=== PATIENT | male | born 1945 | race Caucasian/White ===

== ENCOUNTER 2020-12-12 15:45 | Emergency (ER) | payer MEDICARE ==
[~2020-12-12] VITALS: Ht 182.9 cm; Wt 100.0 kg
[2020-12-12 17:17] LABS: BASO # 0.1 x10^3/uL (0.0-0.2); BASO % 2 % (0-3); EOS # 0.2 x10^3/uL (0.0-0.7); EOS % 4 % (0-3); HEMATOCRIT 41.5 % (39.0-53.0); HEMOGLOBIN 14.2 g/dL (13.0-17.5); LYMPH # 1.6 x10^3/uL (1.0-4.8); LYMPH % 32 % (24-48); MEAN CORPUSCULAR HEMOGLOBIN 32 pg (25-35); MEAN CORPUSCULAR HGB CONC 34 g/dL (31-37); MEAN CORPUSCULAR VOLUME 94 fL (79-100); MONO # 0.4 x10^3/uL (0.0-1.1); MONO % 9 % (0-9); NEUT # 2.7 x10^3/uL (1.8-7.7); NEUT % 54 % (31-73); PLATELET COUNT 199 x10^3/uL (140-400); RED BLOOD COUNT 4.43 x10^6/uL (4.30-5.70); RED CELL DISTRIBUTION WIDTH 14.4 % (11.5-14.5); WHITE BLOOD COUNT 5.1 x10^3/uL (4.0-11.0)
--- NOTE | 2020-12-12 17:21 | RAD ---
XR CHEST 1V History: Reason: SOA / Spl. Instructions: / History: Comparison: None. Findings: No consolidation or pleural effusion. Normal heart size. No pneumothorax. Impression: 1. No acute cardiopulmonary process. Electronically signed by: Prem Renteria DO (12/12/2020 5:18 PM) [facility] [place] [facility] [place]
[2020-12-12 17:29] LABS: CALCIUM 9.1 mg/dL (8.5-10.1); CREATININE 0.9 mg/dL (0.7-1.3); GFR 81.8; POTASSIUM 3.6 mmol/L (3.5-5.1)
[2020-12-12 17:34] LABS: ALBUMIN 3.8 g/dL (3.4-5.0); ALBUMIN/GLOBULIN RATIO 1.2 (1.0-1.7); MAGNESIUM 2.1 mg/dL (1.8-2.4); TOTAL BILIRUBIN 1.2 mg/dL (0.2-1.0); TOTAL PROTEIN 7.1 g/dL (6.4-8.2)
[2020-12-12 18:52] LABS: BILIRUBIN,URINE NEGATIVE (NEG); CLARITY,URINE CLEAR; COLOR,URINE YELLOW; NITRITE,URINE NEGATIVE (NEG); PROTEIN,URINE NEGATIVE (NEG-TRACE)
--- NOTE | 2020-12-12 19:02 | PHYS DOC ---
Past Medical History Past Medical History: Hypertension (AMIRA MIDDLETON COMPUTER FORWARDING SYSTEM MARKUP CLERK) Past Surgical History: Hip Replacement, Other Additional Past Surgical Histo: RIGHT HIP, EYES (AMIRA MIDDLETON COMPUTER FORWARDING SYSTEM MARKUP CLERK) General Adult EDM: Chief Complaint: SHORTNESS OF BREATH HPI: HPI: Patient is a 75 year old male with history of hypertension who presents to the ED today complaining of shortness of breath and diarrhea intermittently for 1 week. Patient states his girlfriend got diagnosed with COVID-19 2 days ago and is hospitalized. Patient also states his in February last year and he is still stressed out about it. Patient denies any fever, denies any unusual coughing or congestion. Denies any chest pain. Denies any suicidal or homicidal ideations. (AMIRA MIDDLETON COMPUTER FORWARDING SYSTEM MARKUP CLERK) Review of Systems: Review of Systems: Constitutional: Denies fever or chills. [] Eyes: Denies change in visual acuity. [] HENT: Denies nasal congestion or sore throat. [] Respiratory: Reports shortness of breath, denies unusual coughing Cardiovascular: Denies chest pain or edema. [] GI: Reports diarrhea. Denies abdominal pain, nausea, vomiting, bloody stools : Denies dysuria. [] Musculoskeletal: Denies back pain or joint pain. [] Integument: Denies rash. [] Neurologic: Denies headache, focal weakness or sensory changes. [] Psychiatric: Denies depression or anxiety. [] (AMIRA MIDDLETON COMPUTER FORWARDING SYSTEM MARKUP CLERK) Heart Score: C/O Chest Pain: N/A Risk Factors: Risk Factors: DM, Current or recent (<one month) smoker, HTN, HLP, family history of CAD, obesity. Risk Scores: Score 0 - 3: 2.5% MACE over next 6 weeks - Discharge Home Score 4 - 6: 20.3% MACE over next 6 weeks - Admit for Clinical Observation Score 7 - 10: 72.7% MACE over next 6 weeks - Early Invasive Strategies (AMIRA MIDDLETON COMPUTER FORWARDING SYSTEM MARKUP CLERK) Physical Exam: PE: Constitutional: Well developed, well nourished, no acute distress, non-toxic appearance. [] HENT: Normocephalic, atraumatic, bilateral external ears normal, oropharynx moist, no oral exudates, nose normal. [] Eyes: PERRLA, EOMI, conjunctiva normal, no discharge. [] Neck: Normal range of motion, no tenderness, supple, no stridor. [] Cardiovascular:Heart rate regular rhythm, no murmur [] Lungs & Thorax: Bilateral breath sounds clear to auscultation [] Abdomen: Bowel sounds normal, soft, no tenderness, no masses, no pulsatile masses. [] Skin: Warm, dry, no erythema, no rash. [] Back: No tenderness, no CVA tenderness. [] Extremities: No tenderness, no cyanosis, no clubbing, ROM intact, no edema. [] Neurologic: Alert and oriented X 3, normal motor function, normal sensory function, no focal deficits noted. [] Psychologic: Affect normal, judgement normal, mood normal. [] (AMIRA MIDDELTON APRN) Current Patient Data: Labs: Laboratory Tests Test 12/12/20 17:00 12/12/20 17:15 White Blood Count 5.1 x10^3/uL (4.0-11.0) Red Blood Count 4.43 x10^6/uL (4.30-5.70) Hemoglobin 14.2 g/dL (13.0-17.5) Hematocrit 41.5 % (39.0-53.0) Mean Corpuscular Volume 94 fL (79-100) Mean Corpuscular Hemoglobin 32 pg (25-35) Mean Corpuscular Hemoglobin Concent 34 g/dL (31-37) Red Cell Distribution Width 14.4 % (11.5-14.5) Platelet Count 199 x10^3/uL (140-400) Neutrophils (%) (Auto) 54 % (31-73) Lymphocytes (%) (Auto) 32 % (24-48) Monocytes (%) (Auto) 9 % (0-9) Eosinophils (%) (Auto) 4 % (0-3) H Basophils (%) (Auto) 2 % (0-3) Neutrophils # (Auto) 2.7 x10^3/uL (1.8-7.7) Lymphocytes # (Auto) 1.6 x10^3/uL (1.0-4.8) Monocytes # (Auto) 0.4 x10^3/uL (0.0-1.1) Eosinophils # (Auto) 0.2 x10^3/uL (0.0-0.7) Basophils # (Auto) 0.1 x10^3/uL (0.0-0.2) Sodium Level 141 mmol/L (136-145) Potassium Level 3.6 mmol/L (3.5-5.1) Chloride Level 102 mmol/L (98-107) Carbon Dioxide Level 28 mmol/L (21-32) Anion Gap 11 (6-14) Blood Urea Nitrogen 11 mg/dL (8-26) Creatinine 0.9 mg/dL (0.7-1.3) Estimated GFR (Cockcroft-Gault) 81.8 BUN/Creatinine Ratio 12 (6-20) Glucose Level 81 mg/dL (70-99) Lactic Acid Level 1.7 mmol/L (0.4-2.0) Calcium Level 9.1 mg/dL (8.5-10.1) Magnesium Level 2.1 mg/dL (1.8-2.4) Total Bilirubin 1.2 mg/dL (0.2-1.0) H Aspartate Amino Transferase (AST) 16 U/L (15-37) Alanine Aminotransferase (ALT) 17 U/L (16-63) Alkaline Phosphatase 74 U/L (46-116) Troponin I Quantitative < 0.017 ng/mL (0.000-0.055) XX-Fgf-X-Type Natriuretic Peptide 109 pg/mL (0-449) Total Protein 7.1 g/dL (6.4-8.2) Albumin 3.8 g/dL (3.4-5.0) Albumin/Globulin Ratio 1.2 (1.0-1.7) Procalcitonin < 0.10 ng/mL (0.00-0.10) SARS-CoV-2 Antigen (Rapid) Negative (NEGATIVE) Laboratory Tests 12/12/20 17:00 Laboratory Tests 12/12/20 17:00 Vital Signs: Vital Signs Date Time Temp Pulse Resp B/P (MAP) Pulse Ox O2 Delivery O2 Flow Rate FiO2 12/12/20 16:54 98.2 50 16 179/95 (123) 97 Room Air 98.2 (AMIRA MIDDLETON APRN) EKG: EK interpreted by Dr. Duran sinus bradycardia heart rate 48 no STEMI [] (AMIRA MIDDLETON APRN) Radiology/Procedures: Radiology/Procedures: []PROCEDURE: PORTABLE CHEST 1V XR CHEST 1V History: Reason: SOA / Spl. Instructions: / History: Comparison: None. Findings: No consolidation or pleural effusion. Normal heart size. No pneumothorax. Impression: 1. No acute cardiopulmonary process. Electronically signed by: Prem Renteria DO (12/12/2020 5:18 PM) [facility] DICTATED and SIGNED BY: PREM RENTERIA DO DATE: 12/12/20 [id number] (AMIRA MIDDLETON APRN) Course & Med Decision Making: Course & Med Decision Making Pertinent Labs and Imaging studies reviewed. (See chart for details) This a 75-year-old male patient presented to the ED today complaining of shortness of breath and diarrhea for 1 week. Patient significant female partner was diagnosed with COVID-19 and is currently hospitalized. CBC CMP with no acute findings. Chest x-ray is negative for any acute findings. Negative rapid Covid test. O2 sats on this patient 97% and above on room air. Blood pressure was 179/95 with a heart rate of 50. 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 He has history of hypertension and states has not been taking his medicines well since his in February. He was given lisinopril which he takes for blood pressure in the ED. He was encouraged to take his blood pressure correctly. He was also encouraged to follow-up with [facility] for counseling/care related to grief. He was instructed to quarantine himself until he gets his PCR Covid test back. Supportive care measures also recommended. Discharged home in good condition (AMIRA MIDDLETON APRN) Course & Med Decision Making I was the Attending physician on the above date of service of this patient. This patient was evaluated, examined, treated, and dispositioned from the emergency department by the mid-level practitioner. Although I was working at the time , no assistance was requested. Electronically signed, Ladonna Andersen DO (LADONNA ANDERSEN DO) Alina Disclaimer: Alina Disclaimer: This electronic medical record was generated, in whole or in part, using a voice recognition dictation system. (AMIRA MIDDLETON APRN) Departure Departure Impression: Primary Impression: Diarrhea Qualified Codes: R19.7 - Diarrhea, unspecified Additional Impressions: Shortness of breath Person under investigation for COVID-19 Grief HTN (hypertension) Qualified Codes: I10 - Essential (primary) hypertension Disposition: HOME / SELF CARE / HOMELESS Condition: STABLE Referrals: NO PCP (PCP) follow up with your doctor and [facility] in one week Patient Instructions: Diarrhea, Shortness of Breath, [id number] Additional Instructions: You were evaluated in the emergency room for shortness of breath. Your work-up was negative for any acute findings. Your rapid Covid test is negative. Your PCR Covid test is pending. We encourage you to quarantine yourself until you get results from us. Take Tylenol or Motrin as needed for pain or fever. Push fluids, maintain good and hygiene. Follow-up with your doctor in 1 week and [facility] for grief counseling. Come back to the ED at any point symptoms worsen. Ensure you are taking your blood pressure medicine AMIRA MIDDLETON APRN Dec 12, 2020 19:02 LADONNA ANDERSEN DO Dec 16, 2020 17:32
[2020-12-12 19:09] LABS: BACTERIA,URINE 0 /HPF (0-FEW)
--- NOTE | 2020-12-12 19:12 | EKG ---
[facility] [address] [place] [address] Test Date: 2020-12-12 Test Time: 17:16:30 Pat Name: LESLY ALEXANDER Department: Room: Gender: M Assistant Kitchen Manager: : 1945 Requested By: AMIRA MIDDLETON Order Number: [id number] Reading MD: Measurements Intervals [place] Rate: 48 P: OR: QRS: -24 QRSD: 88 T: -2 QT: 456 QTc: 411 Interpretive Statements IRREGULAR RHYTHM, NO P-WAVE FOUND LEFTWARD AXIS OTHERWISE NORMAL ECG RI6.02 No previous ECG available for comparison
[2020-12-12] MEDS ORDERED: LISINOPRIL 10 MG TABLET PO ONE (19:15)
[2020-12-12 19:30] VITALS: BP 155/96
--- NOTE | 2020-12-13 15:58 | NUR ---
IP: Patient notified of negative COVID19 test result. Verbalized understanding.
== END 2020-12-12 19:55 | disposition home or self-care (01) ==
LOC: ER 15:45
DX: R06.02 Shortness of breath (principal); Z20.822 Contact with and (suspected) exposure to COVID-19; R19.7 Diarrhea, unspecified; I10 Essential (primary) hypertension; F43.21 Adjustment disorder with depressed mood
CPT/HCPCS: 36415; 71045; 80053; 81001; 83605; 83735; 83880; 84145; 84484; 85025; 87040; 87086; 87426; 93005; 99285; U0003; U0005